=== PATIENT | female | born 1965 | race Two or more races ===

== ENCOUNTER 2025-02-18 02:46 | Emergency (ER) | payer SELFPAY ==
[~2025-02-18] VITALS: Ht 165.1 cm; Wt 63.6 kg
--- NOTE | 2025-02-18 03:05 | ED.PDOC ---
SOB-HPI HPI Comments 59 year old female presents to the ED via EMS with a chief complaint of shortness of breath onset 1 day. Per EMS, patient was outside [address] [place] [address], called 911 due to shortness of breath. Upon EMS arrival, patient's O2 sat was 93% on RA, all VSS. Upon ED arrival, patient is requesting breathing treatment, refusing lab work or imaging. PMHx COPD. Denies chest pain, cough, congestion, sore throat, fever, chills, nausea, vomiting, diarrhea, abdominal pain. No other associated symptoms, modifiers, recent injuries or sick contacts present at this time. 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 History Family History Family History: Reviewed,noncontributory to illness, No family hx of Cancer, No family hx of DM, No family hx of Heart casie, No family hx of HTN, No family hx ofKidney casie, No family hx of Liver casie, No family hx of Lung casie, No family hx of Stroke Social History Smoker: Non-Smoker Alcohol: Denies ETOH Use Drugs: Denies Drug Use Lives In: Homeless Constitutional: denies: chills, diaphoresis, fatigue, fever, malaise, sweats, weakness, others EENTM: denies: blurred vision, double vision, ear bleeding, ear discharge, ear drainage, ear pain, ear ringing, eye pain, eye redness, hearing loss, mouth pain, mouth swelling, nasal discharge, nose bleeding, nose congestion, nose pain, photophobia, tearing, throat pain, throat swelling, voice changes, others Respiratory: reports: shortness of breath; denies: cough, hemoptysis, orthopnea, SOB at rest, SOB with excertion, stridor, wheezing, others Cardiovascular: denies: chest pain, dizzy spells, diaphoresis, Dyspnea on exertion, edema, irregular heart beat, left arm pain, lightheadedness, palpitations, PND, syncope, others Gastrointestinal: denies: abdomen distended, abdominal pain, blood streaked bowels, constipated, diarrhea, dysphagia, difficulty swallowing, hematemesis, melena, nausea, poor appetite, poor fluid intake, rectal bleeding, rectal pain, vomiting, others Genitourinary: denies: abnormal vagina bleeding, burning, dyspareunia, dysuria, flank pain, frequency, hematuria, incontinence, pain, , vagina discharge, urgency, others Neurological: denies: dizziness, fainting, headache, left sided numbness, left sided weakness, numbness, paresthesia, pre-existing deficit, right sided numbne ss, right sided weakness, seizure, speech problems, tingling, tremors, weakness, others Musculoskeletal: denies: back pain, gout, joint pain, joint swelling, muscle pain, muscle stiffness, neck pain, others Integumetry: denies: bruises, change in color, change in hair/nails, dryness, laceration, lesions, lumps, rash, wounds, others Allergic/Immunocompromised: denies: Difficulty Healing, Frequent Infections, Hives, Itching, others Hematologic/Lymphatic: denies: anemia, blood clots, easy bleeding, easy bruising, swollen glands, others Endocrine: denies: excessive hunger, excessive sweating, excessive thirst, excessive urination, flushing, intolerance to cold, intolerance to heat, unexplained weight gain, unexplained weight loss, others Psychiatric: denies: anxiety, bipolar disorder, depression, hopeless, panic disorder, schizophrenia, sleepless, suicidal, others All Other Systems: Reviewed and Negative Physical Exam General Appearance: Normal HEENT: Normal ENT Inspection, Pharynx Normal, TMs Normal Neck: Full Range of Motion, Non-Tender, Normal, Normal Inspection Respiratory: Chest Non-Tender, Lungs Clear, No Accessory Muscle Use, No Resp iratory Distress, Normal Breath Sounds Cardiovascular: No Edema, No JVD, No Murmur, No Gallop, Normal Peripheral Pulses, Regular Rate/Rhythm Breast Exam: Deferred Gastrointestinal: No Organomegaly, Non Tender, No Pulsatile Mass, Normal Bowel Sounds, Soft Genitalia: Deferred Pelvic: Deferred Rectal: Deferred Extremities: No calf tenderness, Normal capillary refill, Normal inspection, Normal range of motion, Non-tender, No pedal edema Musculoskeletal : Apperance: Normal Neurologic: Alert, bisque grader II-XII nml as Tested, No Motor Deficits, Normal Affect, Normal Mood, No Sensory Deficits Cerebellar Function: Normal Reflexes: Normal Skin: Dry, Normal Color, Warm Lymphatic: No Adenopathy Was a procedure done? Was a procedure done?: No Differential Dx Differential Diagnosis: Asthma, Bronchitis, CHF, COPD, Hypertension, Myocardial infarction, Pneumothorax, URI, Other X-Ray, Labs, Meds, VS Vital Signs Date Time Temp Pulse Resp B/P (MAP) Pulse Ox O2 Delivery O2 Flow Rate FiO2 02/18/25 04:50 97.9 82 14 115/74 (88) 96 97.9 02/18/25 04:50 14 96 Room Air* 0 02/18/25 04:50 82 14 96 Room Air* 0 02/18/25 03:27 98 Room Air* 0 02/18/25 03:27 16 98 Room Air* 0 02/18/25 02:57 97.6 85 10 109/79 98 97.6 Current Medications Medications (Trade) Dose Ordered Sig/Brii Route Start Time Stop Time Status Last Admin Albuterol (Ventolin Medneb) 5 mg ONCE ONCE NEB 02/18/25 03:15 02/18/25 03:16 DC 02/18/25 03:26 Ipratropium [place] (Atrovent Medneb) 0.5 mg ONCE ONCE NEB 02/18/25 03:15 02/18/25 03:16 DC 02/18/25 03:26 Time of 1ST Reevaluation: 03:30 Reevaluation 1ST: Unchanged Patient Education/Counseling: Diagnosis, Treatment, Prognosis Family Education/Counseling: No Family Present SEPSIS Sepsis Screen Vital Signs Date Time Temp Pulse Resp B/P (MAP) Pulse Ox O2 Delivery O2 Flow Rate FiO2 02/18/25 04:50 97.9 82 14 115/74 (88) 96 97.9 02/18/25 04:50 14 96 Room Air* 0 02/18/25 04:50 82 14 96 Room Air* 0 02/18/25 03:27 98 Room Air* 0 02/18/25 03:27 16 98 Room Air* 0 02/18/25 02:57 97.6 85 10 109/79 98 97.6 Departure 1 Departure Time of Disposition: 05:30 Impression: Primary Impression: COPD exacerbation Disposition: 01 HOME / SELF CARE / HOMELESS Condition: Stable e-Prescriptions Albuterol Sulfate (Albuterol Sulfate Hfa) 108 Mcg/Act Aer 108 MCG IN Q6HP PRN, #1 AER 3 Refills Prov: SOO POWERS MD 02/18/25 Discharged With: Self Critical Care Note Critical Care Time?: No Stability Stability form required: No Heart Score Heart Score: Heart Score Response (Comments) Value History N/A 0 EKG N/A 0 Age N/A 0 Risk Factors N/A 0 Troponin N/A 0 Total 0 I personally scribed for SOO POWERS MD ([email or web address]) on 02/18/25 at 03:05. Electronically submitted by Sybil Gunderson ([email or web address]). SOO POWERS MD Feb 18, 2025 03:05
[2025-02-18] MEDS ORDERED: ALBU108A5 IN (03:24)
[2025-02-18] MEDS: IPRATROPIUM BROM 0.5 MG/2.5ML INH SOL NEB ONE (03:26)
[2025-02-18] MEDS: ALBUTEROL SULF 2.5 MG/0.5ML(0.5%) NEB SOLN NEB ONE (03:26)
[2025-02-18 04:50] VITALS: BP 115/74; PULSE 82; RESP 14; TEMP 97.9; O2SAT 96
== END 2025-02-18 05:06 | disposition home or self-care (01) ==
LOC: EDBD 02:46 → ER 02:46
DX: J44.1 Chronic obstructive pulmonary disease with (acute) exacerbation (principal); Z59.00 Homelessness unspecified
CPT/HCPCS: 94640